=== PATIENT | male | born 1985 | race African-American/Black ===

== ENCOUNTER 2017-04-10 08:07 | Emergency (ER) | payer OTHER ==
[2017-04-10] MEDS ORDERED: Naproxen 500 MG TAB ONE (09:01)
== END 2017-04-10 09:08 | disposition home or self-care (01) ==
LOC: MADERS 08:07
DX: R51 Headache (principal); F17.210 Nicotine dependence, cigarettes, uncomplicated
CPT/HCPCS: 99283

== ENCOUNTER 2017-06-20 21:32 | Emergency (ER) | payer OTHER ==
[2017-06-20] MEDS ORDERED: Azithromycin 250 MG TAB ONE (22:27)
[2017-06-20] MEDS ORDERED: predniSONE 20 MG TAB ONE (22:27)
[2017-06-20] MEDS ORDERED: Ventolin HFA Inhaler 60 PUFF INHALER ONE (22:47)
== END 2017-06-20 23:10 | disposition home or self-care (01) ==
LOC: MADERS 21:32
DX: J06.9 Acute upper respiratory infection, unspecified (principal); J98.01 Acute bronchospasm; F17.210 Nicotine dependence, cigarettes, uncomplicated
CPT/HCPCS: 94640; J7506; J7620

== ENCOUNTER 2019-10-22 04:43 | Emergency (ER) | payer OTHER | END 2019-10-22 05:05 | disposition home or self-care (01) | LOC: MADERS 04:43 | DX: K08.89 Other specified disorders of teeth and supporting structures (principal); F17.210 Nicotine dependence, cigarettes, uncomplicated | CPT/HCPCS: 99282 ==

== ENCOUNTER 2020-04-21 04:13 | Emergency (ER) | payer OTHER ==
[2020-04-21] MEDS ORDERED: Bumetanide 2.5 MG/10 ML MDV IVP ONE (04:14)
[2020-04-21] MEDS ORDERED: Aspirin Chewable 81 MG TAB ONE ×2 (04:37→04:38)
[2020-04-21 04:58] LABS: #Basophils 0.2 thou/uL (0.0-0.2); #Eosinphils 0.1 thou/uL (0.0-0.7); #Lymphocytes 1.5 thou/uL (1.20-3.40); #Monocytes 0.6 thou/uL (0.11-0.59); #Neutrophils 7.5 thou/uL (1.40-6.50); %Basophils 1.8 % (0.0-1.0); %Eosinophils 1.1 % (0.0-10.0); %Lymphocytes 15.4 % (21.0-51.0); %Monocytes 6.2 % (0.0-10.0); %Neutrophils 75.5 % (42.0-75.0); Hemoglobin 13.1 g/dL (14.0-18.0); Mean Corpuscular HGB CONC 31.7 g/dL (32.0-36.0); Mean Corpuscular Hemoglobin 27.8 pg (27.0-31.0); Mean Corpuscular Volume 87.7 fL (78.0-98.0); Mean Platelet Volume 8.1 fL (7.4-10.4); Platelet Count 316 thou/uL (130-400); RBC Distribution Width 13.7 % (11.5-14.5); Red Blood Cell (RBC) Count 4.72 mill/uL (4.70-6.10)
[2020-04-21 05:12] LABS: ALT (SGPT) 47 U/L (8-55); AST (SGOT) 45 U/L (5-34); Albumin 3.6 g/dL (3.5-5.0); Alkaline Phosphatase 67 U/L (40-110); Anion Gap 12 mmol/L (10-20); BUN (Urea Nitrogen) 12 mg/dL (8.9-20.6); Bilirubin, Total 0.2 mg/dL (0.2-1.2); CK (CPK) 2351 U/L (30-200); Calc. Creatinine Clearance 0 mL/min (70-130); Calcium 8.6 mg/dL (7.8-10.44); Carbon Dioxide 27 mmol/L (22-29); Chloride 106 mmol/L (98-107); Estimated GFR-MDRD 88; Globulin 2.9 g/dL (2.4-3.5); Glucose 118 mg/dL (70-105); Potassium 3.8 mmol/L (3.5-5.1); Protein, Total 6.5 g/dL (6.0-8.3); Sodium 141 mmol/L (136-145)
[2020-04-21] MEDS ORDERED: Sodium Chloride 0.9% 2,000 ML ONE (05:18)
[2020-04-21 05:28] LABS: CKMB 9.8 ng/mL (0-6.6)
[2020-04-21 05:46] LABS: Bilirubin Negative (Negative); Blood, Urine Negative (Negative); Clarity Slightly Cloudy (Clear); Glucose, Urine (Dipstick) Negative (Negative); Ketone, Urine Negative (Negative); Leukocyte Negative (Negative); Nitrite Negative (Negative); Protein, Urine (Dipstick) Negative (Neg-Trace); Specific Gravity, Urine 1.025 (1.005-1.030); Urobilinogen 0.2 mg/dL (Less than 2)
[2020-04-21 05:59] LABS: Amphetamine Not Detected (NotDetected); Barbiturates Screen Not Detected (NotDetected); Benzodiazepine Screen Not Detected (NotDetected); Cocaine Metabolite Screen Not Detected (NotDetected); Medtox Control Line Valid? VALID (VALID); Methadone Not Detected (NotDetected); Methamphetamine Not Detected (NotDetected); Opiate Screen Not Detected (NotDetected); Oxycodone Screen Not Detected (NotDetected); Phencyclidine (PCP) Not Detected (NotDetected); THC/Cannabinoid Screen Not Detected (NotDetected); Tricyclic Screen Not Detected (NotDetected)
[2020-04-21] MEDS ORDERED: Atropine Sulfate 1 mg/10 ml Syringe ONE (06:26)
[2020-04-21] MEDS ORDERED: Furosemide 40 MG/4 ML VIAL ONE ×3 (06:30→07:29)
--- NOTE | 2020-04-21 07:40 | RAD ---
EXAM: Single view of the chest HISTORY: Chest pain COMPARISON: None FINDINGS: Single view of the chest shows a normal sized cardiomediastinal silhouette. There is no harriet dence of consolidation, mass, or pleural effusion. The bones are unremarkable IMPRESSION: No evidence of acute cardiopulmonary disease
[2020-04-21] MEDS ORDERED: EPINEPHrine 1 MG/10 ML Abboject SYRINGE ONE ×2 (08:02→11:52)
[2020-04-21] MEDS ORDERED: Amiodarone 150 MG/3 ML VIAL ONE (11:52)
[2020-04-21] MEDS ORDERED: Sodium Bicarb 50 MEQ/50 ML Abboject 8.4% SYRINGE ONE (11:52)
[2020-04-21] MEDS ORDERED: Succinylcholine Chloride 20 MG/ML 10 ml SYRINGE FS ONE (11:52)
[2020-04-22 14:42] LABS: SARS-CoV-2 MS2 Positive; SARS-CoV-2 N Gene Negative; SARS-CoV-2 S Gene Negative; SARS-CoV-2 by NAA Not Detected (NotDetected); SARS-CoV-2 orf1ab Negative
== END 2020-04-21 11:00 | disposition expired ==
LOC: MADERS 04:13
DX: I46.9 Cardiac arrest, cause unspecified (principal); Z20.828 Contact with and (suspected) exposure to other viral communicable diseases; F17.210 Nicotine dependence, cigarettes, uncomplicated
CPT/HCPCS: 71045; 80053; 80306; 81003; 82550; 82553; 84484; 85025; 87635; 93005; 96361; 96374; 96375; 96376; 99292; J0171; J0282; J0461; J1940; J3490; J7050; J7070; U0003